=== PATIENT | male | born 1980 | race Caucasian/White ===

== ENCOUNTER → 2018-07-12 09:23 | Outpatient (CLI) | payer OTHER, SELFPAY ==
--- NOTE | 2018-07-12 | DI.MRI.S_ITS ---
PROCEDURE: MR HAND LT WO/W CON INDICATIONS: Ganglion, left hand TECHNIQUE: Noncontrast coronal T1 spin echo and STIR, sagittal T1 spin echo with fat saturation and STIR, axial T1 spin echo and T2 fast spin echo with fat saturation. After the administration of contrast, axial/sagittal/coronal T1 spin echo with fat saturation through the left hand. COMPARISON: None. FINDINGS: Image quality: Excellent. Bones: The visualized bone marrow demonstrates normal signal on all sequences. The overlying cortex appears intact. No abnormal intraosseous enhancement. Soft tissues: In the area marked by the fiducial, there is a 4 x 5 x 6 mm T2 hyperintense round cystic appearing lesion with no internal enhancement, adjacent to the flexor tendons of the index finger at the level base of the proximal phalanx. No adjacent marrow edema is seen. This closely abuts the flexor tendon slips which otherwise appear unremarkable. No adjacent inflammatory soft tissue changes. IMPRESSION: Presumed subcentimeter ganglion cyst along the volar aspect of the index finger at the level of the base of the proximal phalanx. Dictated by: José Antonio Dumont M.D. on 07/12/2018 at 11:32 Approved by: José Antonio Dumont M.D. on 07/12/2018 at 11:37
== END ==
PROVIDERS: Visit Provider Orthopaedic Surgery
DX: M67.442 Ganglion, left hand (principal)
CPT/HCPCS: 73220; A9579

== ENCOUNTER → 2019-05-15 08:28 | Outpatient (CLI) | payer OTHER, SELFPAY ==
--- NOTE | 2019-05-15 | DI.RAD.S_ITS ---
PROCEDURE: XR ABDOMEN 1V INDICATIONS: Personal history of urinary calculi TECHNIQUE: One view of the abdomen acquired. COMPARISON: Outside CT abdomen dated 03/15/19. FINDINGS: Surgical changes and devices: None. Bowel: Bowel gas pattern is normal. Soft tissues: No suspicious abdominal calcifications radiographically identified. Punctate densities seen on the prior CT are not well-seen radiographically. Visualized solid organ contours appear normal in size. Bones: No suspicious bony lesions. IMPRESSION: Punctate renal calculi seen on the comparison outside study are not well-visualized radiographically. Dictated by: José Antonio Dumont M.D. on 05/15/2019 at 9:53 Approved by: José Antonio Dumont M.D. on 05/15/2019 at 9:54
== END ==
PROVIDERS: Referring Provider Urology; Visit Provider Urology
DX: Z09 Encounter for follow-up examination after completed treatment for conditions other than malignant neoplasm (principal); Z87.442 Personal history of urinary calculi
CPT/HCPCS: 74018